=== PATIENT | female | born 1995 | race Caucasian/White ===

== ENCOUNTER 2016-11-22 17:56 | Emergency (ER) | payer OTHER ==
[~2016-11-22] VITALS: Wt 58.1 kg
[2016-11-22] MEDS ORDERED: PRENATAL1 TA3 PO (18:12)
== END 2016-11-22 20:38 | disposition home or self-care (01) ==
LOC: ED 17:56
DX: S62.603A Fracture of unspecified phalanx of left middle finger, initial encounter for closed fracture (principal); F17.200 Nicotine dependence, unspecified, uncomplicated; Z88.0 Allergy status to penicillin; W23.0XXA Caught, crushed, jammed, or pinched between moving objects, initial encounter; Y93.89 Activity, other specified; Y92.9 Unspecified place or not applicable; Y99.9 Unspecified external cause status

== ENCOUNTER 2021-03-17 21:46 | Emergency (ER) | payer SELFPAY ==
[~2021-03-17] VITALS: Ht 157.4 cm; Wt 56.7 kg
[~2021-03-17 21:46] MED LIST: PRENATAL1 TA3 PO
[2021-03-17] MEDS ORDERED: VIBRAMYCIN100 MG PO (23:39)
== END 2021-03-18 00:10 | disposition home or self-care (01) ==
LOC: ED 21:46
DX: L70.0 Acne vulgaris (principal); Z86.14 Personal history of Methicillin resistant Staphylococcus aureus infection; Z88.0 Allergy status to penicillin; Z88.8 Allergy status to other drugs, medicaments and biological substances; Z79.899 Other long term (current) drug therapy

== ENCOUNTER 2025-05-03 19:48 | Emergency (ER) | payer OTHER ==
[~2025-05-03] VITALS: Ht 170.1 cm; Wt 64.0 kg
[~2025-05-03 19:48] MED LIST changes: +VIBRAMYCIN100 MG PO
[2025-05-03] MEDS ORDERED: Ondansetron Hydrochloride 4 MG/2 ML VIAL IV ONE (20:20)
== END 2025-05-03 21:27 | disposition short-term general hospital (02) ==
LOC: ED
DX: S02.412A LeFort II fracture, initial encounter for closed fracture (principal); S02.413A LeFort III fracture, initial encounter for closed fracture; S02.609A Fracture of mandible, unspecified, initial encounter for closed fracture; Z88.0 Allergy status to penicillin; Z88.8 Allergy status to other drugs, medicaments and biological substances; V89.2XXA Person injured in unspecified motor-vehicle accident, traffic, initial encounter; Y93.89 Activity, other specified; Y92.488 Other paved roadways as the place of occurrence of the external cause; Y99.8 Other external cause status

== ENCOUNTER 2025-06-01 16:43 | Inpatient (IN) | payer SELFPAY ==
[~2025-06-01] VITALS: Ht 157.5 cm; Wt 53.7 kg
[2025-06-01 16:51] VITALS: BP 102/56
[2025-06-01] MEDS ORDERED: QUETIAPINE FUM100 M3 PO (16:57)
[2025-06-01] MEDS ORDERED: AMPHETAMINE SAL15 M1 PO (16:58)
[2025-06-01] MEDS ORDERED: LISDEXAMFETAMIN60 MG PO (16:58)
[2025-06-01] MEDS ORDERED: IBUPROFEN 100 MG/5 ML UDC PO ONE (17:35)
[2025-06-01] MEDS ORDERED: LEVETIRACETAM IN NACL (ISO-OS) 100 ML IV ONE ×2 (17:50→18:35)
[2025-06-01 17:52] LABS: BASO # 0.0 10*3/uL (0.0-0.1); BASO % 0.3 % (0.0-1.0); EOS # 0.0 10*3/uL (0.0-0.4); EOS % 0.6 % (1.0-4.0); MEAN CELL VOLUME 91.3 fl (81.0-99.0); MEAN CORPUSCULAR HGB 30.2 pg (27.0-31.0); MEAN PLATELET VOLUME 10.7 fl (9.6-12.3); MONO # 0.3 10*3/uL (0.1-1.0); MONO % 4.8 % (3.0-9.0); NEUT # 4.6 10*3/uL (2.3-7.9); NEUT % 68.8 % (47.0-73.0); NUCLEATED RED BLOOD CELL 0.0 % (0.0-0.0); NUCLEATED RED BLOOD CELL 0.0 10*3/uL (0.0-0.0); PLATELET COUNT AUTOMATED 175 10*3/uL (130-400); RED CELL DISTRI WIDTH 12.4 % (0-14.5)
[2025-06-01 18:19] LABS: BUN 11 mg/dl (9-23); SGPT/ALT 42 U/L (5-49)
[2025-06-01] MEDS ORDERED: Acetaminophen/Hydrocodone 5 MG/325 MG TABLET PO ONE (23:15)
[2025-06-02 01:28] VITALS: BP 97/54
[2025-06-02] MEDS ORDERED: BISACODYL 10 MG SUPP R PRN (01:40)
[2025-06-02] MEDS ORDERED: ACETAMINOPHEN 325 MG TAB PO PRN (01:40)
[2025-06-02] MEDS ORDERED: ACETAMINOPHEN 650 MG SUPP R PRN (01:40)
[2025-06-02] MEDS ORDERED: Ondansetron Hydrochloride 4 MG/2 ML VIAL IV PRN (01:40)
[2025-06-02] MEDS ORDERED: BISACODYL 5 MG TAB PO PRN (01:40)
[2025-06-02 06:46] LABS: BASO # 0.0 10*3/uL (0.0-0.1); BASO % 0.8 % (0.0-1.0); EOS # 0.1 10*3/uL (0.0-0.4); EOS % 1.2 % (1.0-4.0); MEAN CELL VOLUME 93.1 fl (81.0-99.0); MEAN CORPUSCULAR HGB 30.1 pg (27.0-31.0); MEAN PLATELET VOLUME 10.9 fl (9.6-12.3); MONO # 0.3 10*3/uL (0.1-1.0); MONO % 5.7 % (3.0-9.0); NEUT # 2.4 10*3/uL (2.3-7.9); NEUT % 47.8 % (47.0-73.0); NUCLEATED RED BLOOD CELL 0.0 % (0.0-0.0); NUCLEATED RED BLOOD CELL 0.0 10*3/uL (0.0-0.0); PLATELET COUNT AUTOMATED 176 10*3/uL (130-400); RED CELL DISTRI WIDTH 12.4 % (0-14.5)
[2025-06-02 07:11] LABS: BUN 13 mg/dl (9-23); FREE T4 1.09 ng/dl (0.89-1.76); LDL CHOLESTEROL 55 mg/dL (9-159)
[2025-06-02 07:53] LABS: VITAMIN D, 25-HYDROXY 49.2 ng/mL (30-100)
[2025-06-02 08:37] VITALS: BP 104/48
[2025-06-02] MEDS ORDERED: LEVETIRACETAM 500 MG TAB PO SCH (10:00)
[2025-06-02 12:00] VITALS: BP 102/70
[2025-06-02] MEDS ORDERED: Acetaminophen/Hydrocodone 5 MG/325 MG TABLET PO ONE (12:15)
[2025-06-02 16:00] VITALS: BP 105/65
[2025-06-02 20:00] VITALS: BP 100/62
[2025-06-03] VITALS: BP 98/57
[2025-06-03 08:00] VITALS: BP 101/70
[2025-06-03] MEDS ORDERED: GADOTERATE MEGLUMINE 7.5 MMOL/15 ML VIAL IV ONE (09:35)
[2025-06-03 12:00] VITALS: BP 97/58
[2025-06-03] MEDS ORDERED: KEPPRA1000 MG PO (12:19)
== END 2025-06-03 16:32 | DRG 101 ==
LOC: ED 16:43 → EDHOLD 23:02 → 5E 23:02
PROVIDERS: Nurse Practitioner; Student in an Organized Health Care Education/Training Program; ADMIT Internal Medicine; ATTEND Internal Medicine
DX: G40.89 Other seizures (principal); E16.2 Hypoglycemia, unspecified; R51.9 Headache, unspecified; Z88.0 Allergy status to penicillin; Z88.8 Allergy status to other drugs, medicaments and biological substances; Z91.09 Other allergy status, other than to drugs and biological substances; Z79.899 Other long term (current) drug therapy; Z79.01 Long term (current) use of anticoagulants; Z79.2 Long term (current) use of antibiotics; Z87.820 Personal history of traumatic brain injury; S02.92XS Unspecified fracture of facial bones, sequela; X58.XXXD Exposure to other specified factors, subsequent encounter; X58.XXXS Exposure to other specified factors, sequela; S02.412 LeFort II fracture; S02.41 LeFort fracture; S02.609S Fracture of mandible, unspecified, sequela; S06.9X1D Unspecified intracranial injury with loss of consciousness of 30 minutes or less, subsequent encounter